=== PATIENT | female | born 1955 | race Hispanic/Latino ===

== ENCOUNTER 2018-02-11 12:00 | Emergency (ER) | payer SELFPAY ==
[~2018-02-11] VITALS: Ht 167.6 cm; Wt 80.0 kg
[2018-02-11] MEDS ORDERED: METFORMIN500 MG PO (12:20)
[2018-02-11] MEDS ORDERED: GLYBURIDE5 M1 PO (12:21)
[2018-02-11] MEDS ORDERED: LORTAB 5/3255 MG PO (15:08)
[2018-02-11 15:40] VITALS: BP 145/80
== END 2018-02-11 15:40 | disposition home or self-care (01) | DRG 999 ==
LOC: ED 12:00
PROC: 2W3BXYZ Immobilization of Left Upper Arm using Other Device (ICD-10-PCS; principal; 2018-02-11)
DX: S42.032A Displaced fracture of lateral end of left clavicle, initial encounter for closed fracture (principal); S06.9X9A Unspecified intracranial injury with loss of consciousness of unspecified duration, initial encounter; E11.9 Type 2 diabetes mellitus without complications; W18.2XXA Fall in (into) shower or empty bathtub, initial encounter; Y93.E1 Activity, personal bathing and showering; Y92.002 Bathroom of unspecified non-institutional (private) residence as the place of occurrence of the external cause

== ENCOUNTER 2021-03-01 17:24 | Emergency (ER) | payer SELFPAY ==
[~2021-03-01] VITALS: Ht 167.6 cm; Wt 73.0 kg
[~2021-03-01 17:24] MED LIST: GLYBURIDE5 M1 PO; LORTAB 5/3255 MG PO; METFORMIN500 MG PO
[2021-03-01] MEDS ORDERED: NOVOLOG MIX100 U/ML SC (17:38)
[2021-03-01] MEDS ORDERED: BLOOD PRESSURE (17:39)
[2021-03-01 20:45] LABS: URINE BILIRUBIN - DIPSTICK NEGATIVE (NEGATIVE); URINE BLOOD DIPSTICK NEGATIVE (NEGATIVE); URINE COLOR YELLOW; URINE GLUCOSE - DIPSTICK NEGATIVE (NEGATIVE); URINE KETONE NEGATIVE (NEGATIVE); URINE LEUK ESTERASE NEGATIVE (NEGATIVE); URINE PH 7.5 (4.5-8.0); URINE PROTEIN - DIPSTICK NEGATIVE (NEG-TRACE); URINE UROBILINOGEN - DIPSTICK 0.2 E.U./dL (0.2)
[2021-03-01 20:47] LABS: URINE NITRITE - DIPSTICK NEGATIVE (Negative)
[2021-03-01 21:52] LABS: HEMATOCRIT 33.6 % (37.0-47.0); HEMOGLOBIN 11.6 g/dl (12.0-16.0); IMMATURE GRANULOCYTES 0.4 % (0.0-5.0); MEAN CELL VOLUME 83.8 fL CALC (80.0-100.0); MEAN CORPUSCULAR HGB 28.9 pG CALC (26.0-32.0); MEAN CORPUSCULAR HGB CONC 34.5 g/dL CAL (32.0-36.0); NEUT# 3.75 thou/uL (2.00-7.15); RED BLOOD COUNT 4.01 mill/uL (4.20-5.60); RED CELL DISTRI WIDTH 13.2 % (11.5-15.5)
[2021-03-01 22:05] LABS: ALKALINE PHOSPHATASE 73 u/l (38-126); ANION GAP 12 (6-22 (CALC)); BILIRUBIN, TOTAL 0.9 mg/dL (0.0-1.4); BUN 18 mg/dL (8-23); BUN/CREATININE RATIO 22 (12-20 (CALC)); CARBON DIOXIDE 29 mmol/l (22-30); CHLORIDE 91 mmol/l (95-108); CREATININE 0.8 mg/dL (0.5-1.0); GFR > 60 ML/MIN (>=60 (CALC)); GFR FOR AFR.AMER. > 60 ML/MIN (>=60 (CALC)); POTASSIUM 4.2 mmol/l (3.5-5.1); SGOT/AST 24 u/l (9-36); SODIUM 127 mmol/l (137-146); TOTAL PROTEIN 7.2 g/dL (6.3-8.2)
[2021-03-01] MEDS ORDERED: CLONIDINE0.1 MG PO (22:54)
[2021-03-01 23:00] VITALS: BP 179/84
== END 2021-03-01 23:00 | disposition home or self-care (01) | DRG 103 ==
LOC: ED 17:24
PROVIDERS: Family Medicine
DX: R51.9 Headache, unspecified (principal); I10 Essential (primary) hypertension; E11.9 Type 2 diabetes mellitus without complications; Z20.822 Contact with and (suspected) exposure to COVID-19